=== PATIENT | female | born 1995 | race Caucasian/White ===

== ENCOUNTER 2021-10-27 13:51 | Emergency (ER) | payer OTHER, SELFPAY ==
[2021-10-27 13:59] VITALS: BP 113/62; PULSE 65; RESP 18; TEMP 37.1; O2SAT 96; BMI 24.8
--- NOTE | 2021-10-27 14:17 | ED.GENADULT ---
HPI - General Adult General Time Seen by Provider: 14:17 Date Seen: 10/27/21 Chief complaint: Abdominal Pain Stated complaint: R side Abdominal Pain Time Seen by Provider: 10/27/21 13:55 Source: patient and RN notes reviewed Mode of arrival: ambulatory Limitations: no limitations History of Present Illness HPI narrative: This 26-year-old female is coming in with right-sided abdominal pain. She is ambulatory into the ED of her own accord. For the last couple of days, she had noted some low back pain. This morning she started having right-sided abdominal pain, right upper flank area. Seem to go to the right belly button area and then more right-sided and right lower quadrant. Right now it is more in the right upper abdomen. If she lies still it seems to be better. She did eat breakfast this morning but noted nausea afterwards, no vomiting. She endorses some longer-term nausea with eating. That recently did worsen after starting Zoloft. She notes some difficulty with constipation at times but no diarrhea. No urinary symptoms. No noted fevers but she has felt increased sweaty and hot particularly this morning. She had a umbilical hernia repair reportedly with mesh after her delivery of her child. That was reported to be a normal spontaneous vaginal delivery. She has also had cardiac surgery for atrial septal defect at age 15 per report. As far as family history of abdominal issues, she believes her brother has had his gallbladder out. Related Data Home Medications Medication Instructions Recorded Confirmed norethindrone (contraceptive) 0.35 mg 10/27/21 mg tablet sertraline 50 mg tablet mg 10/27/21 Previous Rx's Medication Instructions Recorded omeprazole 20 mg capsule,delayed 20 mg PO DAILY #14 caps 10/27/21 release Allergies Allergy/AdvReac Type Severity Reaction Status Date / Time No Known Drug Allergies Allergy Verified 10/27/21 13:59 Review of Systems Status of ROS: Reports: 10 or more systems reviewed and unremarkable except as noted in History and below PFSH PFS Social History Smoking Status: Former smoker Do you use any of these nicotine containing products: None Second hand tobacco smoke exposure: No How often do you have a drink containing alcohol: monthly or less How many standard drinks containing alcohol do you have on a typical day: 1 or 2 How often do you have six or more drinks on one occasion: Never AUDIT-C Alcohol total score: 1 Non-prescribed substance use: marijuana (any form) service: No Exam Const: Vital Signs, click to edit/add: Vital Signs - 24 hr 10/27/21 13:59 Temperature 98.7 F Pulse Rate [Pulse Oximeter] 65 Respiratory Rate 18 Blood Pressure [Le ft Upper Arm] 113/62 Pulse Oximetry 96 Oxygen Delivery Me thod Room Air Documenting provider has reviewed patient's vital signs: yes Common normals: no apparent distress, average body habitus, oriented x3, no limitations, healthy appearing, alert and well nourished General appearance: cooperative, comfortable and well kempt HENMT: Common normals: normocephalic, head/scalp atraumatic, hearing grossly normal bilaterally, external ears normal, EAC's normal, external nose normal, nasal mucous membranes and turbinates normal, moist oral mucous membranes, oropharynx normal, dentition normal and gingiva normal Head and scalp: normocephalic and atraumatic Nose: external nose normal and nasal mucous membranes and turbinates normal External ear: external ears normal External auditory canal: EAC's normal Eye: Common normals: PERRL, EOMs intact bilaterally, conjunctivae normal and no scleral icterus Conjunctiva: conjunctiva(e) normal Pupil: PERRL Neck & C-Spine: Common normals: full ROM, no lymphadenopathy, supple, no meningeal signs, no JVD and thyroid normal Thyroid: thyroid normal Resp: Common normals: normal respiratory effort, no retractions, no use of accessory muscles and clear to auscultation bilaterally Auscultation: clear to auscultation bilaterally Cardio: Common normals: no JVD, regular rate, regular rhythm, S1 normal heart sound, S2 normal heart sound, no gallops, no clicks, no murmurs and no rub Rate: regular rate Rhythm: regular rhythm Heart sounds: S1 normal and S2 normal GI: Common normals: Normal to inspection, nondistended, normoactive bowel sounds present (Has flesh-colored striae), soft to palpation, no hepatosplenomegaly, no masses and no bruits Palpation: soft, tender (Right upper quadrant more laterally, right paraumbilical area), no hepatosplenomegaly and other (No rebound or guarding however) : Common normals: no CVA tenderness Bladder/kidney exam: no CVA tenderness Back & Pelvis: Common normals: no CVA tenderness Extremity: Common normals: normal to inspection, full ROM, normal capillary refill, no joint enlargement, no clubbing, cyanosis or edema, no calf tenderness and no pedal edema Neuro: Common normals: oriented x3 Sensorium/orientation: alert Meningeal signs: no meningeal signs Speech: speech normal Gait (neuro): normal gait Psych: Appearance: well kempt Skin: Common normals: no rashes or lesions noted, no wounds, skin turgor normal, no jaundice, no petechiae and no mottling General skin exam: no rashes or lesions noted and turgor normal Course Course Hospital Course: We will establish an IV, give her 4 mg IV Zofran and 15 mg IV Toradol for symptom control. We will proceed with a limited right upper quadrant abdominal ultrasound. Will get appropriate lab work and proceed with advanced imaging if need be. This certainly sounds to be intra-abdominal pathology and with the proceeding ongoing nausea, definitely think gallbladder issues are high in the differential. We will look at other acute abdominal pathology if need be with a CT. We will await labs, see what the abdominal ultrasound shows and guide therapy accordingly. Reevaluation(s) Reevaluation #1: Reviewed with patient that her ultrasound is not showing any acute pathology. It looks like there might be a possible gallbladder polyp which she should follow up outpatient with General surgery to review further. This does not require emergent intervention. Outside of a mildly elevated bilirubin labs are normal, white blood count normal. We still do need to collect urine in she states she will try. If she cannot give us a urinalysis will give her IV fluids. Her pain is still present but improved. Thus, I do feel we need to proceed with abdominal imaging to ensure no acute surgical abdomen. Will proceed with CT abdomen pelvis with IV contrast. Time: 16:48 Reevaluation #2: Reviewed with patient her normal CT. Discussed the importance of following up. She goes to [facility] and she can follow up with the general surgeon there. They can discuss the gallbladder polyp, her nausea, discuss further evaluation. Gastric etiologies are a possibility in an EGD may be recommended. We also discussed dysfunctional gallbladder is which may require a HIDA scan. In the meantime will initiate omeprazole to cover for GI issues. Her nausea certainly started before her antidepressant by her report. It certainly has been aggravated by the use of the antidepressant but this usually will marilee with people if they can give it some time. If needed, her primary care provider could consider switching medicines for her. Time: 18:53 Vital Signs Vital signs: Initial Vital Signs Temperature 98.7 F 10/27/21 13:59 Temperature Source Temporal Artery Scan 10/27/21 13:59 Pulse Rate 65 10/27/21 13:59 Pulse Rhythm 10/27/21 13:59 Respiratory Rate 18 10/27/21 13:59 Blood Pressure 113/62 10/27/21 13:59 Blood Pressure Mean 79 10/27/21 13:59 Pulse Oximetry 96 10/27/21 13:59 Oxygen Delivery Method 10/27/21 13:59 Vital Signs Temperature 98.7 F 10/27/21 13:59 Pulse Rate 65 10/27/21 13:59 Respiratory Rate 18 10/27/21 13:59 Blood Pressure 113/62 10/27/21 13:59 Pulse Oximetry 96 10/27/21 13:59 Oxygen Delivery Method 10/27/21 13:59 Temperature 98.7 F 10/27/21 13:59 Pulse Rate 65 10/27/21 13:59 Respiratory Rate 18 10/27/21 13:59 Blood Pressure 113/62 10/27/21 13:59 Pulse Oximetry 96 10/27/21 13:59 Oxygen Delivery Method 10/27/21 13:59 Medical Decision Making Lab Data Lab results reviewed: Yes I reviewed the patient's lab results Labs: Lab Results 10/27/21 10/27/21 10/27/21 Range/Units 14:55 14:55 14:55 WBC 9.34 (4.50-11.00) K/uL RBC 4.27 (4.00-5.20) m/uL Hgb 13.2 (12.0-16.0) gm/dL Hct 38.6 (33.0-51.0) % MCV 90 (80-100) fL MCH 31 (26-34) pg MCHC 34 (32-36) gm/dL RDW Coeff of Sara 11.0 L (11.5-15.5) % Plt Count 208 (140-440) K/uL Neut % (Auto) 77.6 H (42.0-72.0) % Lymph % (Auto) 14.6 L (20-44) % [place] % (Auto) 6.6 (0.0-11.0) % Eos % (Auto) 0.5 (0.0-7.0) % Baso % (Auto) 0.3 (0.0-3.0) % Neut # (Auto) 7.20 H (1.7-7.0) K/uL Lymph # (Auto) 1.40 (0.90-2.90) K/uL [place] # (Auto) 0.60 (0.00-0.90) K/UL Eos # (Auto) 0.05 (0.00-0.50) K/uL Baso # (Auto) 0.03 (0.00-0.30) K/uL Abs Immat Gran (auto) 0.04 (0.00-0.30) K/uL Sodium 141 (135-149) mmol/L Potassium 3.8 (3.6-5.1) mmol/L Chloride 106 (96-114) mmol/L Carbon Dioxide 25 (20-32) mmol/L BUN 13 (5-24) mg/dL Creatinine 0.7 (0.5-1.5) mg/dL Estimated Creat Clear 111.51 Estimated GFR 124 ml/min Glucose 98 (60-115) mg/dL Lactate 0.9 (0.5-1.9) mmol/L Calcium 9.5 (8.4-10.6) mg/dL Total Bilirubin 3.1 H (0.1-1.5) mg/dL AST 20 (12-35) U/L ALT 16 (4-35) U/L Alkaline Phosphatase 41 (40-150) U/L C-Reactive Protein < 0.5 L (0.5-1.0) mg/dL Total Protein 8.0 (6.0-8.3) g/dL Albumin 5.0 (3.3-5.0) g/dL Lipase 59 (23-300) U/L Urine Color (Yellow) Urine Appearance (Clear) Urine pH (5.0-8.5) Ur Specific [place] (1.000-1.030) Urine Protein (Negative) Urine Glucose (UA) (Negative) Urine Ketones (Negative) Urine Blood (Negative) Urine Nitrite (Negative) Urine Bilirubin (Negative) Urine Urobilinogen (0.2-1.0) Ur Leukocyte Esterase (Negative) Urine RBC (0-2) Urine WBC (0-5) Ur Squamous Epith Cells (None-Few) Amorphous Sediment (None) Urine Bacteria (None) Urine HCG, Qual (Negative) SARS-CoV-2 (PCR) (Negative) 10/27/21 10/27/21 10/27/21 Range/Units 14:55 16:50 16:50 WBC (4.50-11.00) K/uL RBC (4.00-5.20) m/uL Hgb (12.0-16.0) gm/dL Hct (33.0-51.0) % MCV (80-100) fL MCH (26-34) pg MCHC (32-36) gm/dL RDW Coeff of Sara (11.5-15.5) % Plt Count (140-440) K/uL Neut % (Auto) (42.0-72.0) % Lymph % (Auto) (20-44) % [place] % (Auto) (0.0-11.0) % Eos % (Auto) (0.0-7.0) % Baso % (Auto) (0.0-3.0) % Neut # (Auto) (1.7-7.0) K/uL Lymph # (Auto) (0.90-2.90) K/uL [place] # (Auto) (0.00-0.90) K/UL Eos # (Auto) (0.00-0.50) K/uL Baso # (Auto) (0.00-0.30) K/uL Abs Immat Gran (auto) (0.00-0.30) K/uL Sodium (135-149) mmol/L Potassium (3.6-5.1) mmol/L Chloride (96-114) mmol/L Carbon Dioxide (20-32) mmol/L BUN (5-24) mg/dL Creatinine (0.5-1.5) mg/dL Estimated Creat Clear Estimated GFR ml/min Glucose (60-115) mg/dL Lactate (0.5-1.9) mmol/L Calcium (8.4-10.6) mg/dL Total Bilirubin (0.1-1.5) mg/dL AST (12-35) U/L ALT (4-35) U/L Alkaline Phosphatase (40-150) U/L C-Reactive Protein (0.5-1.0) mg/dL Total Protein (6.0-8.3) g/dL Albumin (3.3-5.0) g/dL Lipase (23-300) U/L Urine Color Yellow (Yellow) Urine Appearance Cloudy A (Clear) Urine pH 8.0 (5.0-8.5) Ur Specific [place] 1.020 (1.000-1.030) Urine Protein Trace A (Negative) Urine Glucose (UA) Negative (Negative) Urine Ketones Trace A (Negative) Urine Blood Negative (Negative) Urine Nitrite Negative (Negative) Urine Bilirubin Negative (Negative) Urine Urobilinogen 2.0 A (0.2-1.0) Ur Leukocyte Esterase Trace A (Negative) Urine RBC 0-2 (0-2) Urine WBC 5-10 A (0-5) Ur Squamous Epith Cells Moderate A (None-Few) Amorphous Sediment Many A (None) Urine Bacteria Moderate A (None) Urine HCG, Qual Negative (Negative) SARS-CoV-2 (PCR) Negative SARS-CoV-2 (Negative) Urine appears to show contamination. Imaging Data US - abdomen: Attestation: I have reviewed the pertinent imaging results. Radiologist's impression: Patient: DIONICIO [facility] Facility:?[facility] Patient ID:?[id number] Site Patient ID:?[id number]. Site :?[id number] Study:?US Abdomen RUQ-10/27/2021 3:39:58 PM Ordering Physician:?Yonatan Villa Final Report: INDICATION: Right upper quadrant pain. Nausea. TECHNIQUE: Transabdominal imaging with attention to the right upper quadrant. COMPARISON: None. FINDINGS: Pancreas is predominantly obscured. Visualized proximal abdominal aorta and IVC are unremarkable. Visualized liver is unremarkable. Hepatopetal flow is demonstrated in the main portal vein. No sludge or stones are seen within the gallbladder. Incidental 3 mm gallbladder polyp. Bile ducts are normal in caliber. The CBD measures 4 mm. Right kidney is normal size with no hydronephrosis. IMPRESSION: 1. No sonographic evidence of cholelithiasis or cholecystitis. 2. Incidental 3 mm gallbladder polyp. 3. No other significant findings. Dictated by Herbie Griffith MD @ 10/27/2021 4:31:52 PM (Electronic Signature) CT scan - abdomen: Attestation: I have reviewed the pertinent imaging results. Radiologist's impression: Patient: DIONICIO VALENZUELA Facility:?[facility] Patient ID:?[id number] Site Patient ID:?[id number]. Site :?[id number] Study:?CT Abdomen/Pelvis W/ISOVUE 370 74CC-10/27/2021 5:40:54 PM Ordering Physician:?Yonatan Villa Final Report: INDICATION: Right-sided pain. TECHNIQUE: CT abdomen and pelvis acquired with 74 mL Isovue 370 IV contrast. COMPARISON: None. FINDINGS: Lower chest: Normal heart size. No pericardial effusion. A few benign subpleural pulmonary nodules are seen in the lung bases. No pleural fluid. Liver: Normal size. No mass. Spleen: Normal size. No mass. Pancreas: No mass or acute inflammatory changes. Gallbladder and bile ducts: No calcified stones in the gallbladder. Normal caliber bile ducts. Kidneys: Normal size. Normal enhancement. No mass. No hydronephrosis. Adrenal glands: No mass. No hemorrhage. GI tract: No abnormally dilated bowel. Appendix is not definitely identified. No inflammatory changes are seen adjacent to the cecum. Vascular structures: Normal caliber abdominal aorta. Lymph nodes: No pathologically enlarged lymph nodes. Miscellaneous: No free air. No free fluid. Pelvic Organs: Collapsed urinary bladder appears unremarkable. Uterus is present. No suspicious adnexal mass. Bones: No acute abnormality. IMPRESSION: No CT findings to account for the patient`s right-sided abdominal pain. Please note that all CT scans at this facility use dose modulation, iterative reconstruction, and/or weight-based dosing when appropriate to reduce radiation dose to as low as reasonably achievable. Dictated by Herbie Griffith MD @ 10/27/2021 6:22:20 PM (Electronic Signature) Critical Care Time Critical Care Time Critical Care Time: No Discharge Plan Discharge Clinical Impression: Right-sided abdominal pain of unknown cause, Gallbladder polyp, Nausea Condition: Stable Instructions: Acute Nausea and Vomiting (ED), Abdominal Pain (ED) Additional Instructions: Need to call [facility] this next week to ask to be scheduled with 1 of the general surgeons for further evaluation and management. In the meantime, start omeprazole. If you develop worsening of your abdominal pain have associated vomiting or fever with it, do need to seek re-evaluation in the ER. Activity Level: Activity as Tolerated Prescriptions: New omeprazole 20 mg capsule,delayed release(DR/EC) 20 mg PO DAILY Qty: 14 0RF No Action norethindrone (contraceptive) 0.35 mg tablet Label Comments: TAKE 1 TABLET BY MOUTH ONCE DAILY. sertraline 50 mg tablet Label Comments: TAKE 1 TABLET BY MOUTH EVERY DAY Stand Alone Forms: [employer] Info Instructions
--- NOTE | 2021-10-27 14:45 | CRLHL7_ITS ---
For Patients: As a result of the Century Cures Act, medical imaging exams and procedure reports are released immediately into your electronic medical record. You may view this report before your referring provider. If you have questions, please contact your health care provider. INDICATION: Right upper quadrant pain. Nausea. TECHNIQUE: Transabdominal imaging with attention to the right upper quadrant. COMPARISON: None. FINDINGS: Pancreas is predominantly obscured. Visualized proximal abdominal aorta and IVC are unremarkable. Visualized liver is unremarkable. Hepatopetal flow is demonstrated in the main portal vein. No sludge or stones are seen within the gallbladder. Incidental 3 mm gallbladder polyp. Bile ducts are normal in caliber. The CBD measures 4 mm. Right kidney is normal size with no hydronephrosis. IMPRESSION: 1. No sonographic evidence of cholelithiasis or cholecystitis. 2. Incidental 3 mm gallbladder polyp. 3. No other significant findings. Dictated by Herbie Griffith MD @ 10/27/2021 4:31:52 PM (Electronically Signed)
[2021-10-27] MEDS: KETOROLAC 15 MG/ML inj IVP (15:09)
[2021-10-27 15:17] LABS: Lactate* 0.9 mmol/L (0.5-1.9)
[2021-10-27 15:27] LABS: Basophils Absolute Auto 0.03 K/uL (0.00-0.30); Basophils Percent Auto 0.3 % (0.0-3.0); Eosinophils Absolute Auto 0.05 K/uL (0.00-0.50); Eosinophils Percent Auto 0.5 % (0.0-7.0); Hematocrit 38.6 % (33.0-51.0); Hemoglobin* 13.2 gm/dL (12.0-16.0); Immature Granulocytes Abs Auto 0.04 K/uL (0.00-0.30); Lymphocytes Percent Auto 14.6 % (20-44); Mean Corpuscular HGB Conc 34 gm/dL (32-36); Mean Corpuscular Hemoglobin 31 pg (26-34); Mean Corpuscular Volume 90 fL (80-100); Monocytes Percent Auto 6.6 % (0.0-11.0); Neutrophils Percent Auto 77.6 % (42.0-72.0); Platelet Count* 208 K/uL (140-440); Red Blood Count 4.27 m/uL (4.00-5.20); White Blood Count* 9.34 K/uL (4.50-11.00)
[2021-10-27 15:30] LABS: Slide Review Reflex No
[2021-10-27 15:33] LABS: Chloride* 106 mmol/L (96-114)
[2021-10-27 15:34] LABS: Potassium* 3.8 mmol/L (3.6-5.1); Sodium* 141 mmol/L (135-149)
[2021-10-27 15:36] LABS: Creatinine* 0.7 mg/dL (0.5-1.5); Est. Creatinine Clearance* 111.51; Estimated Glomerular Filt Rate 124 ml/min
[2021-10-27 15:37] LABS: Alanine Aminotransferase* 16 U/L (4-35); Alkaline Phosphatase* 41 U/L (40-150); Aspartate Amino Transferase* 20 U/L (12-35); Bilirubin Total* 3.1 mg/dL (0.1-1.5); Blood Urea Nitrogen* 13 mg/dL (5-24); Calcium* 9.5 mg/dL (8.4-10.6); Carbon Dioxide* 25 mmol/L (20-32); Glucose* 98 mg/dL (60-115); Lipase* 59 U/L (23-300)
[2021-10-27 15:42] LABS: C Reactive Protein* < 0.5 mg/dL (0.5-1.0)
[2021-10-27 16:02] LABS: SARS PCR* Negative SARS-CoV-2 (Negative)
--- NOTE | 2021-10-27 16:49 | CRLHL7_ITS ---
For Patients: As a result of the Century Cures Act, medical imaging exams and procedure reports are released immediately into your electronic medical record. You may view this report before your referring provider. If you have questions, please contact your health care provider. INDICATION: Right-sided pain. TECHNIQUE: CT abdomen and pelvis acquired with 74 mL Isovue 370 IV contrast. COMPARISON: None. FINDINGS: Lower chest: Normal heart size. No pericardial effusion. A few benign subpleural pulmonary nodules are seen in the lung bases. No pleural fluid. Liver: Normal size. No mass. Spleen: Normal size. No mass. Pancreas: No mass or acute inflammatory changes. Gallbladder and bile ducts: No calcified stones in the gallbladder. Normal caliber bile ducts. Kidneys: Normal size. Normal enhancement. No mass. No hydronephrosis. Adrenal glands: No mass. No hemorrhage. GI tract: No abnormally dilated bowel. Appendix is not definitely identified. No inflammatory changes are seen adjacent to the cecum. Vascular structures: Normal caliber abdominal aorta. Lymph nodes: No pathologically enlarged lymph nodes. Miscellaneous: No free air. No free fluid. Pelvic Organs: Collapsed urinary bladder appears unremarkable. Uterus is present. No suspicious adnexal mass. Bones: No acute abnormality. IMPRESSION: No CT findings to account for the patient`s right-sided abdominal pain. Please note that all CT scans at this facility use dose modulation, iterative reconstruction, and/or weight-based dosing when appropriate to reduce radiation dose to as low as reasonably achievable. Dictated by Herbie Griffith MD @ 10/27/2021 6:22:20 PM (Electronically Signed)
[2021-10-27 17:04] LABS: Appearance Urine Cloudy (Clear); Bilirubin Urine Negative (Negative); Blood Urine Negative (Negative); Color Urine Yellow (Yellow); Glucose Urine Negative (Negative); Ketones Urine Trace (Negative); Leukocyte Esterase Urine Trace (Negative); Nitrite Urine Negative (Negative); Protein Urine Trace (Negative)
[2021-10-27 17:05] LABS: Ur HCG Qualitative* Negative (Negative)
[2021-10-27 17:15] LABS: Amorphous Sediment Urine Many; Bacteria Urine Moderate; RBC Urine 0-2 (0-2); Squamous Epithelial Cell Urine Moderate (None-Few)
== END 2021-10-27 19:09 | disposition home or self-care (01) ==
PROVIDERS: Emergency Provider Family Medicine
DX: K80.20 Calculus of gallbladder without cholecystitis without obstruction (principal)
CPT/HCPCS: 36415; 74177; 76705; 80053; 81001; 81025; 83605; 83690; 85025; 86140; 87086; 87635; 96374; 99284; 99285; J1885; Q9967

== ENCOUNTER 2022-03-09 21:36 | Emergency (ER) | payer OTHER, SELFPAY ==
[2022-03-09 21:42] VITALS: BP 124/79; PULSE 63; RESP 16; TEMP 36.1; O2SAT 100
--- NOTE | 2022-03-09 22:36 | ED.ABDPAIN ---
HPI - Abdominal Pain General Chief Complaint: Abdominal Pain Stated Complaint: right side abdominal pain Time Seen by Provider: 03/09/22 21:57 History of Present Illness HPI narrative: 26-year-old woman presenting to the emergency department where tonight for about an hour and a half onset while at work of sharp intense pain wrapping around to her flank. Similar to prior presentation here before with elevated bilirubin and suspicion of gallbladder disease. Does have a history of nephrolithiasis and this is not exacty like kidney stones/ureteral colic that she has experienced. Also crampy across the low abdomen. Had been constipated for a few days until bowel movement a couple of days ago. Often has had periods of constipation. History of nephrolithiasis, constipation, irritable bowel with intolerance it sounds like of pasta and bread making her not feel good i.e. gluten, lactose avoiding milk. Last seen in this department with right upper quadrant abdominal pain in October of 2021. She was recommended to have consultation with General surgery but has not managed to make this follow-up. Related Data Home Medications Medication Instructions Recorded Confirmed norethindrone (contraceptive) 0.35 mg 10/27/21 mg tablet sertraline 50 mg tablet mg 10/27/21 Previous Rx's Medication Instructions Recorded omeprazole 20 mg capsule,delayed 20 mg PO DAILY #14 caps 10/27/21 release Allergies Allergy/AdvReac Type Severity Reaction Status Date / Time No Known Drug Allergies Allergy Verified 10/27/21 13:59 Review of Systems Status of ROS Reports: 10 or more systems reviewed and unremarkable except as noted in History and below [facility] Social History Smoking Status: Former smoker Do you use any of these nicotine containing products: Vaping Products Second hand tobacco smoke exposure: No How often do you have a drink containing alcohol: monthly or less How many standard drinks containing alcohol do you have on a typical day: 1 or 2 How often do you have six or more drinks on one occasion: Never AUDIT-C Alcohol total score: 1 Non-prescribed substance use: marijuana (any form) service: No Exam Narrative: Exam Narrative: Pleasant. NAD. Cranial nerves 2-12 look to be in tact. Hand often palpating, demonstrating area of discomfort in the right upper quadrant. Breathing easily. Lungs are clear. Oropharynx unremarkable. Heart in a regular rate and rhythm no murmur rub or gallop identified. Abdomen with normal active bowel sounds. abdomen generally mildly tender to palpation without peritoneal signs. soft. No masses appreciated. No flank pain. Moving all extremities without difficulty. Well perfused. No extremity edema. Const: Vital Signs, click to edit/add: Vital Signs - 24 hr 03/09/22 21:42 03/09/22 22:51 Temperature 97.0 F L Pulse Rate [Left P ulse Oximeter] 63 Respiratory Rate 16 16 Blood Pressure [Ri ght Upper Arm] 124/79 Pulse Oximetry 100 Oxygen Delivery Me thod Room Air Documenting provider has reviewed patient's vital signs: yes Course Vital Signs Vital signs: Initial Vital Signs Temperature 97.0 F L 03/09/22 21:42 Temperature Source Temporal Artery Scan 03/09/22 21:42 Pulse Rate 63 03/09/22 21:42 Pulse Rhythm 03/09/22 21:42 Respiratory Rate 16 03/09/22 21:42 Blood Pressure 124/79 03/09/22 21:42 Blood Pressure Mean 94 03/09/22 21:42 Blood Pressure Position Sitting 03/09/22 21:42 Pulse Oximetry 100 03/09/22 21:42 Oxygen Delivery Method 03/09/22 21:42 Vital Signs Temperature 97.0 F L 03/09/22 21:42 Pulse Rate 63 03/09/22 21:42 Respiratory Rate 16 03/09/22 21:42 Blood Pressure 124/79 03/09/22 21:42 Pulse Oximetry 100 03/09/22 21:42 Oxygen Delivery Method 03/09/22 21:42 Temperature 97.0 F L 03/09/22 21:42 Pulse Rate 63 03/09/22 21:42 Respiratory Rate 16 03/09/22 22:51 Blood Pressure 124/79 03/09/22 21:42 Pulse Oximetry 100 03/09/22 21:42 Oxygen Delivery Method 03/09/22 21:42 MDM - Abdominal Pain MDM Narrative Medical decision making narrative: The more severe/acute symptoms seem to have been self-limiting on top of more chronic issue here. We did discuss evaluating again here though not convinced that this would change outcome. Overall improved. I did offer further cares here but also encouraged toward outpatient follow-up. She does feel comfortable with this, preferring the latter. Medical Records Attestation: I reviewed the patient's medical records. Discharge Plan Discharge Clinical Impression: Abdominal pain, Constipation, Irritable bowel, Right upper quadrant abdominal pain Patient Disposition: Home w/ Parent or Adult Condition: Improved Additional Instructions: Yes. Might be a good idea to call for an appointment with General surgery for re-evaluation your gallbladder. Your bilirubin was up during your last visit. In the meantime might benefit from restarting 2 weeks of omeprazole and/or initiating some digestive enzymes like Crissy Bio-Gest. Important to stay well hydrated. Need to drink around 2-3 L of water daily. Keep your stool soft with good fiber intake in the form of fruits and vegetables. Might begin supplementing with MiraLax equivalent somewhere between 1-3 doses each in at least 8 oz of liquid, by noon and then adjust to stool consistency. If having really hard stool do not be afraid to use an enema and repeat in an hour if no good result. No need to strain. Stimulating your bowel can also be accomplished by a tablet or 2 of senna daily as needed. Not something you want to take every day chronically. Bowel cleanout can be accomplished with a bottle of magnesium citrate, if available, and repeat the next day if needed. Return for marked increase in persistent abdominal pain, repeated vomiting, associated fever. Prescriptions: No Action norethindrone (contraceptive) 0.35 mg tablet Label Comments: TAKE 1 TABLET BY MOUTH ONCE DAILY. sertraline 50 mg tablet Label Comments: TAKE 1 TABLET BY MOUTH EVERY DAY omeprazole 20 mg capsule,delayed release(DR/EC) 20 mg PO DAILY Qty: 14 0RF Follow Up/Referrals: Provider,Not a Local [Primary Care Provider] - Stand Alone Forms: [employer] Info Instructions
[2022-03-09 22:51] VITALS: RESP 16
== END 2022-03-09 22:51 | disposition home or self-care (01) ==
PROVIDERS: Emergency Provider Family Medicine
DX: R10.11 Right upper quadrant pain (principal); K58.1 Irritable bowel syndrome with constipation
CPT/HCPCS: 99282; 99283

== ENCOUNTER 2024-10-06 19:31 | Emergency (ER) | payer OTHER, SELFPAY ==
--- OUTSIDE RECORDS SUMMARY | 2024-10-06 19:33 | XMS_ITS | Clinical Summary ---
Author Organization [email or web address] [facility] Address [address] [place] [id number] Care Team Providers Care Marketing Systems Manager Name Role Phone Pcp, No Primary Care Provider Unavailabl e Allergies No known active allergies Medications No known medications Active Problems Problem Noted Date Diagnosed Date Pap smear for cervical cancer screening 05/09/19 22 Overview (06/14/2021): Plan: Pap/HPV due 04/2024 Social History Tobacco Use Types Packs/Day Years Used Date Smoking Tobacco: Every Day Cigarettes Smokeless Tobacco: Never Tobacco Cessation:Ready to Q uit: Not Asked; Counseling Given: Not Answered Alcohol Use Standard Drinks/Week Comments Not Currently 0 (1 standard drink = 0.6 oz pur e alcohol) about 1-2 drinks per week PHQ-2 Answer Date Recorded PHQ-2 TOTAL SCORE 6 10/23/2021 Social Connections Answer Date Recorded Do you often feel lonely or isolated from those around you? 0 07/24/2023 Financial Resource Strain Answer Date R ecorded Difficulty of Paying Living Expenses 3 07/24/2023 Difficulty of Paying Living Expenses Not on file 07/24/2023 Food Insecurity Answer Date Recorded Do you worry your food will run out before you are able to buy more? 1 07/24/2023 Transportation Needs Answer Date Record ed Does lack of transportation keep you from medica l appointments? 1 07/24/2023 Does lack of transportation keep you from work, meetings or getting things that you need? 1 07/24/2023 Housing Stability Answer Date Recorded What is your housing situation today? 1 07/24/2023 Utilities Answer Date Recorded Do you have trouble paying f or utilities (for example, heat, electricity, water, phone)? 1 07/24/2023 Comments No Sex and Gender Information Value Date Recorded Sex Assigned at Not on file Legal Sex Female 12:51 PM CDT Gender Identity Not on file Sexual Orientation Not on file Obstetrics History Last Filed Vital Signs Vital Sign Reading Time Taken Comments Blood Pressure 135/81 02/13/2024 11:27 AM DECAL APPLIER Pulse 75 02/13/2024 11:27 AM DECAL APPLIER Temperature 37 C (98.6 F) 03/24/2023 9:13 AM DECAL APPLIER Respiratory Rate 16 08/12/2021 4:01 PM CDT Oxygen Saturation 100% 02/13/2024 11:27 AM DECAL APPLIER Inhaled Oxygen Concentration - - Weight 81.9 kg (180 lb 9.6 oz) 02/13/2024 11:27 AM DECAL APPLIER Height 166 cm (5' 5.35) 05/08/2021 10:46 AM CDT Body Mass Index 29.73 05/08/2021 10:46 AM CDT Plan of Treatment Health Maintenance Due Date Last Done Comments Tetanus booster 2008 HIV for age 15-65 2012 Hepatitis C screening for age 18-79 05/07/2015 Hepatitis B series for 19+ ( 1 of 3 - 19+ 3-dose series) 2016 Pneumococcal series for age 6-49 (1 of 2 - PCV) 2016 BMI (ht and wt on same day) for age 18+ 05/08/2022 0 05/08/2021 Depression screening for age 12+ 10/23/2022 10/24/19 22 COVID-19 vaccine series ( - season) Pap test for age 21-65 05/08/2024 05/08/2021 Influenza Vaccine (#1) 2024 Procedures Procedure Name Priority Date/Time Associated Diagnosis Comments AERIAL CROP DUSTER THIN PREP PAP SCREEN IMAGED Routine 05/08/2021 11:11 AM CDT Screening for malignant neoplasm of cervix from Last 3 Months or Most Recently Relevant to Health Maintenance Results * AERIAL CROP DUSTER THIN PREP PAP SCREEN IMAGED (05/08/2021 11:11 AM CDT) Case Report Gynecologic Cytology Report Case: [id number] Authorizing Provider: Jesi Gibson PA Collected: 05/08/2021 1111 Ordering Location: [facility] Received: 05/08/2021 1130 Clinic First Screen: Tatiana Magana Specimen: AERIAL CROP DUSTER ThinPrep Vial Screening, Cervical 05/16/2021 2:32 PM CDT [facility] [employer] [facility] INTERPRETATION/ RESULT NEGATIVE FOR INTRAEPITHELIAL LESION OR MALIGNANCY (NIL) (none) 05/16/2021 2:32 PM CDT [facility] at 1432 CDT SPECIMEN ADEQUACY Satisfactory for evaluation Endocervical component present 05/16/2021 2:32 PM CDT [facility] HPV REQUEST HPV if ASCUS 05/16/2021 2:32 PM CDT [facility] Date of LMP 04/15/2021 05/16/2021 2:32 PM CDT [facility] Last Pap Date 4 years ago? 2 2:32 PM CDT [facility] Last Pap Result NIL 2 2:32 PM CDT [facility] Abnormal Pap or [place] Bx in last 5 years No 05/16/2021 2:32 PM CDT [facility] Menstrual Status Regular Periods 05/16/2021 2:32 PM CDT [facility] [place] Bx Done Today No 05/16/2021 2:32 PM CDT [facility] Additional Information None given 05/16/2021 2:32 PM CDT [facility] Comment: Cytology is screened at [facility], [facility] - [address], [place] [address] and [facility] - [address], [place] [address] and [facility] - [address] [place] [address] Interpreted at [facility] - [address] [place] [address] Automated Review Successful 05/16/2021 2:32 PM CDT [facility] Comment:Specimen processed s uccessfully by automated personal health coach device, [employer] Imaging System, [employer] Note The pap test is a screening technique, not a diagnostic procedure. It is used primarily to screen for squamous cancers and precursor lesions. Published studies have shown that it is subject to both false negative and false positive results. The pap test should not be used as the sole means to diagnose or exclude pre-malignant and malignant lesions. 05/16/2021 2:32 PM CDT [facility] Other (Cervical) Non-Blood / Unknown 05/08/2021 11:11 AM CDT 05/08/2021 11:30 AM CDT us Jesi BANKS PATHOLOGY/CYTOLOGY Final R esult [facility] [address] [place] [address], from Last 3 Months or Most Recently Relevant to Health Maintenance Insurance [address] [id number] [facility] Care Teams Marketing Systems Manager Relationship Specialty Start Date End Date Pcp, No . PCP - General 08/03/22
[2024-10-06 19:40] VITALS: BP 117/77; PULSE 84; RESP 18; TEMP 36.7; O2SAT 100; BMI 22.8
--- NOTE | 2024-10-06 19:54 | ED.ABDPAIN ---
HPI - Abdominal Pain General Date Seen: 10/06/24 <Nichole Johnson MD - Last Filed: 10/09/24 17:12> Chief Complaint: Abdominal Pain <Nichole Johnson MD - Last Filed: 10/09/24 17:12> Stated Complaint: pelvis/leg pain <Nichole Johnson MD - Last Filed: 10/09/24 17:12> Time Seen by Provider: 10/06/24 19:54 <Nichole Johnson MD - Last Filed: 10/09/24 17:12> Source: patient, family and RN notes reviewed <Nichole Johnson MD - Last Filed: 10/09/24 17:12> Mode of arrival: ambulatory <Nichole Johnson MD - Last Filed: 10/09/24 17:12> Limitations: no limitations <Nichole Johnson MD - Last Filed: 10/09/24 17:12> History of Present Illness HPI narrative: Noris is a very pleasant 29-year-old female with a history of ovarian cysts, weight loss who comes to the emergency room for evaluation regarding pelvic and leg pain. Patient notes that 2 nights ago she had discomfort in her lower abdomen radiating into both of her legs. She took some ibuprofen and greatly improved. Unfortunately the pain continued and this morning she took some Excedrin which did seem to help the pain but really is not much better. She notes that she had her period 10 days ago and that it was maybe a little longer than normal. She is sexually active with her significant other who has a vasectomy. She denies any unusual vaginal discharge. She has not had a fever but may be sometimes feel somewhat chilled. No nausea or vomiting. The pain in the lower abdomen actually radiates more into the left anterior leg. She states that her left leg is actually sore. She has not had any falls or trauma. She has not had any nausea or vomiting. No urinary symptoms at this time. She notes some difficulty with constipation or difficulty with defecating over the past few days. But notes that she had multiple bowel movements today. <Nichole Johnson MD - Last Filed: 10/09/24 17:12> Related Data Home Medications: Home Medications ?Medication ?Instructions ?Recorded ?Confirmed norethindrone (contraceptive) 0.35 mg 10/27/21 mg tablet sertraline 50 mg tablet mg 10/27/21 Previous Rx's ?Medication ?Instructions ?Recorded omeprazole 20 mg capsule,delayed 20 mg PO DAILY #14 caps 10/27/21 release <Nichole Johnson MD - Last Filed: 10/09/24 17:12> Allergies/Adverse Reactions: Allergies Allergy/AdvReac Type Severity Reaction Status Date / Time No Known Drug Allergies Allergy Verified 10/27/21 13:59 <Nichole Johnson MD - Last Filed: 10/09/24 17:12> Review of Systems Status of ROS Reports: 10 or more systems reviewed and unremarkable except as noted in History and below <Nichole Johnson MD - Last Filed: 10/09/24 17:12> Const Reports: chills; Denies: fever <Nichole Johnson MD - Last Filed: 10/09/24 17:12> ENMT Denies: nasal congestion <Nichole Johnson MD - Last Filed: 10/09/24 17:12> Cardio Denies: chest pain or shortness of breath with exertion <Nichole Johnson MD - Last Filed: 10/09/24 17:12> Resp Denies: shortness of breath or cough <Nichole Johnson MD - Last Filed: 10/09/24 17:12> GI Reports: abdominal pain and constipation; Denies: nausea or vomiting <Nichole Johnson MD - Last Filed: 10/09/24 17:12> Denies: painful urination or urinary frequency <Nichole Johnson MD - Last Filed: 10/09/24 17:12> Musculo Reports: back pain <Nichole Johnson MD - Last Filed: 10/09/24 17:12> Neuro Denies: headache <Nichole Johnson MD - Last Filed: 10/09/24 17:12> [facility] Social History: Social History Smoking Status: Former smoker Do you use any of these nicotine containing products: Vaping Products Second hand tobacco smoke exposure: No How often do you have a drink containing alcohol: monthly or less How many standard drinks containing alcohol do you have on a typical day: 1 or 2 How often do you have six or more drinks on one occasion: Never AUDIT-C Alcohol total score: 1 Non-prescribed substance use: marijuana (any form) service: No <Nichole Johnson MD - Last Filed: 10/09/24 17:12> Exam Narrative: Exam Narrative: Alert and oriented. No acute distress. Heart with regular rate and rhythm and lungs are clear. Head is atraumatic normocephalic. Mentation and speech is normal. Moist mucous membranes. Abdomen is soft. Rather diffuse tenderness noted in the entire lower aspect of the abdomen. No masses are palpated. Movement of the left leg internal external rotation flexion hip flexion without pain. No pain in the abdomen with tapping on the left heel. <Nichole Johnson MD - Last Filed: 10/09/24 17:12> Const: Vital Signs, click to edit/add: Vital Signs - 24 hr 10/06/24 19:40 10/06/24 22:04 Temperature 98.1 F Pulse Rate [Pulse Oximeter] 84 Respiratory Rate 18 Blood Pressure [Ri ght Upper Arm] 117/77 121/68 Pulse Oximetry 100 Oxygen Delivery Me thod Room Air <Nichole Johnson MD - Last Filed: 10/09/24 17:12> Vital Signs, click to edit/add: Vital Signs - 24 hr 10/06/24 19:40 10/06/24 22:04 Temperature 98.1 F Pulse Rate [Pulse Oximeter] 84 Respiratory Rate 18 Blood Pressure [Ri ght Upper Arm] 117/77 121/68 Pulse Oximetry 100 Oxygen Delivery Me thod Room Air <Daisy Tam MD - Last Filed: 10/06/24 23:19> Documenting provider has reviewed patient's vital signs: yes <Nichole Johnsno MD - Last Filed: 10/09/24 17:12> Course Course ED Course: Differential diagnosis includes but is not limited to GI illness, ovarian cyst, PID, urinary tract infection, radiculitis, musculoskeletal strain. Will place an IV draw labs include CBC, CRP, comprehensive, urinalysis, JIMENEZ wet prep, GC chlamydia. Have ordered ketorolac 15 mg IV. Also pending is a pelvic ultrasound. <Nichole Johnson MD - Last Filed: 10/09/24 17:12> Reevaluation(s) Reevaluation #1: At this time patient has a normal vaginal ultrasound. Pelvic exam accomplished. Does show an increased amount of vaginal discharge in the vault. There is no foul odor. It is slightly yellow. There is no irritation of the vaginal hunt. Cervix is posterior. No cervical motion tenderness. Patient did did have increased pain with palpation in the left adnexa. GC chlamydia and wet prep accomplished. Patient notes that Toradol has definitely helped. She talks about left leg at this time which is better but still present. She does note the pain seems to come from around her back. No known injuries. Vital signs and laboratory values are reassuring at this time. Given past history of constipation will order abdominal flat plate and upright. <Nichole Johnson MD - Last Filed: 10/09/24 17:12> Time of Reevaluation #2: 23:19 <Daisy Tam MD - Last Filed: 10/06/24 23:19> Reevaluation #2: X-ray read by Radiology reviewed, no change in plan. Patient will be discharged at this time. There are no new nursing concerns. <Daisy Tam MD - Last Filed: 10/06/24 23:19> Vital Signs Vital signs: Initial Vital Signs Temperature 98.1 F 10/06/24 19:40 Temperature Source Temporal Artery Scan 10/06/24 19:40 Pulse Rate 84 10/06/24 19:40 Pulse Rhythm Regular 10/06/24 19:40 Respiratory Rate 18 10/06/24 19:40 Blood Pressure 117/77 10/06/24 19:40 Blood Pressure Mean 90 10/06/24 19:40 Blood Pressure Position Sitting 10/06/24 19:40 Pulse Oximetry 100 10/06/24 19:40 Oxygen Delivery Method Room Air 10/06/24 19:40 Vital Signs Temperature 98.1 F 10/06/24 19:40 Pulse Rate 84 10/06/24 19:40 Respiratory Rate 18 10/06/24 19:40 Blood Pressure 117/77 10/06/24 19:40 Pulse Oximetry 100 10/06/24 19:40 Oxygen Delivery Method Room Air 10/06/24 19:40 Temperature 98.1 F 10/06/24 19:40 Pulse Rate 84 10/06/24 19:40 Respiratory Rate 18 10/06/24 19:40 Blood Pressure 121/68 10/06/24 22:04 Pulse Oximetry 100 10/06/24 19:40 Oxygen Delivery Method Room Air 10/06/24 19:40 <Nichole Johnson MD - Last Filed: 10/09/24 17:12> Initial Vital Signs Temperature 98.1 F 10/06/24 19:40 Temperature Source Temporal Artery Scan 10/06/24 19:40 Pulse Rate 84 10/06/24 19:40 Pulse Rhythm Regular 10/06/24 19:40 Respiratory Rate 18 10/06/24 19:40 Blood Pressure 117/77 10/06/24 19:40 Blood Pressure Mean 90 10/06/24 19:40 Blood Pressure Position Sitting 10/06/24 19:40 Pulse Oximetry 100 10/06/24 19:40 Oxygen Delivery Method Room Air 10/06/24 19:40 Vital Signs Temperature 98.1 F 10/06/24 19:40 Pulse Rate 84 10/06/24 19:40 Respiratory Rate 18 10/06/24 19:40 Blood Pressure 117/77 10/06/24 19:40 Pulse Oximetry 100 10/06/24 19:40 Oxygen Delivery Method Room Air 10/06/24 19:40 Temperature 98.1 F 10/06/24 19:40 Pulse Rate 84 10/06/24 19:40 Respiratory Rate 18 10/06/24 19:40 Blood Pressure 121/68 10/06/24 22:04 Pulse Oximetry 100 10/06/24 19:40 Oxygen Delivery Method Room Air 10/06/24 19:40 <Daisy Tam MD - Last Filed: 10/06/24 23:19> MDM - Abdominal Pain MDM Narrative Medical decision making narrative: 1. Bacterial vaginosis-will treat with Flagyl 500 mg p.o. b.i.d. x7 days. This is given via our [employer] machine. GC chlamydia pending will contact patient if these were positive. No evidence of PID tonight. 2. Constipation-increased stool burden noted on x-ray. Patient describes increasing difficulty with stooling over the past week. Ask her to do MiraLax twice a day until stools are soft and then gradually decreased. 3. Back and leg pain I think this is actually referred pain from the constipation but we are currently awaiting the x-ray results. 4. Disposition-home at this time. Seek medical attention for worsening symptoms especially fever chills. If patient does return with abdominal pain at that time a may suggest abdominal CT. This patient is signed out to my colleague Dr. Workman for review of the flat plate and upright and lumbar spine x-rays. <Nichole Johnson MD - Last Filed: 10/09/24 17:12> Medical Records Attestation: I reviewed the patient's medical records. <Nichole Johnson MD - Last Filed: 10/09/24 17:12> Lab Data Attestation: I reviewed the patient's lab results. <Nichole Johnson MD - Last Filed: 10/09/24 17:12> Labs: Lab Results 10/06/24 10/06/24 10/06/24 Range/Units 20:37 21:00 21:47 WBC 8.84 (4.50-11.00) K/uL RBC 4.18 (4.00-5.20) m/uL Hgb 13.2 (12.0-16.0) gm/dL Hct 39.2 (33.0-51.0) % MCV 94 (80-100) fL MCH 32 (26-34) pg MCHC 34 (32-36) gm/dL RDW Coeff of Sara 11.6 (11.5-15.5) % Plt Count 159 (140-440) K/uL Neut % (Auto) 72.1 H (42.0-72.0) % Lymph % (Auto) 18.2 L (20-44) % [place] % (Auto) 6.2 (0.0-11.0) % Eos % (Auto) 3.3 (0.0-7.0) % Baso % (Auto) 0.2 (0.0-3.0) % Neut # (Auto) 6.40 (1.7-7.0) K/uL Lymph # (Auto) 1.60 (0.90-2.90) K/uL [place] # (Auto) 0.50 (0.00-0.90) K/UL Eos # (Auto) 0.29 (0.00-0.50) K/uL Baso # (Auto) 0.02 (0.00-0.30) K/uL Abs Immat Gran (auto) 0.00 (0.00-0.30) K/uL Imm/Tot Granulo (auto) 0.0 % Sodium 139 (135-149) mmol/L Potassium 3.8 (3.6-5.1) mmol/L Chloride 104 (96-114) mmol/L Carbon Dioxide 26 (20-32) mmol/L Anion Gap 9 (7-15) mEq/L BUN 8 (5-24) mg/dL Creatinine 0.7 (0.5-1.5) mg/dL Estimated Creat Clear 108.63 Estimated GFR 121 ml/min Glucose 85 (60-115) mg/dL Calcium 10.1 (8.4-10.6) mg/dL Total Bilirubin 2.0 H (0.1-1.5) mg/dL AST 21 (12-35) U/L ALT 13 (4-35) U/L Alkaline Phosphatase 43 (40-150) U/L C-Reactive Protein < 0.5 L (0.5-1.0) mg/dL Total Protein 8.1 (6.0-8.3) g/dL Albumin 5.2 H (3.3-5.0) g/dL Urine Color Yellow (Yellow) Urine Appearance Clear (Clear) Urine pH 5.5 (5.0-8.5) Ur Specific [place] >= 1.030 (1.000-1.030) Urine Protein Negative (Negative) Urine Glucose (UA) Negative (Negative) Urine Ketones 1+ A (Negative) Urine Blood Negative (Negative) Urine Nitrite Negative (Negative) Urine Bilirubin 1+ A (Negative) Urine Urobilinogen 0.2 (0.2-1.0) Ur Leukocyte Esterase Negative (Negative) Urine RBC 2-5 A (0-2) Urine WBC 2-5 (0-5) Ur Squamous Epith Cells Few (None-Few) Urine Bacteria Few A (None) Urine HCG, Qual Negative (Negative) Vaginal Trichomonas (None Seen) Vaginal Yeast (None Seen) Vaginal Clue Cells (None Seen) C.trachomatis Ampl DNA (No Detected) N.gonorrhoeae Ampl DNA (No Detected) 10/06/24 Range/Units 22:00 WBC (4.50-11.00) K/uL RBC (4.00-5.20) m/uL Hgb (12.0-16.0) gm/dL Hct (33.0-51.0) % MCV (80-100) fL MCH (26-34) pg MCHC (32-36) gm/dL RDW Coeff of Sara (11.5-15.5) % Plt Count (140-440) K/uL Neut % (Auto) (42.0-72.0) % Lymph % (Auto) (20-44) % [place] % (Auto) (0.0-11.0) % Eos % (Auto) (0.0-7.0) % Baso % (Auto) (0.0-3.0) % Neut # (Auto) (1.7-7.0) K/uL Lymph # (Auto) (0.90-2.90) K/uL [place] # (Auto) (0.00-0.90) K/UL Eos # (Auto) (0.00-0.50) K/uL Baso # (Auto) (0.00-0.30) K/uL Abs Immat Gran (auto) (0.00-0.30) K/uL Imm/Tot Granulo (auto) % Sodium (135-149) mmol/L Potassium (3.6-5.1) mmol/L Chloride (96-114) mmol/L Carbon Dioxide (20-32) mmol/L Anion Gap (7-15) mEq/L BUN (5-24) mg/dL Creatinine (0.5-1.5) mg/dL Estimated Creat Clear Estimated GFR ml/min Glucose (60-115) mg/dL Calcium (8.4-10.6) mg/dL Total Bilirubin (0.1-1.5) mg/dL AST (12-35) U/L ALT (4-35) U/L Alkaline Phosphatase (40-150) U/L C-Reactive Protein (0.5-1.0) mg/dL Total Protein (6.0-8.3) g/dL Albumin (3.3-5.0) g/dL Urine Color (Yellow) Urine Appearance (Clear) Urine pH (5.0-8.5) Ur Specific [place] (1.000-1.030) Urine Protein (Negative) Urine Glucose (UA) (Negative) Urine Ketones (Negative) Urine Blood (Negative) Urine Nitrite (Negative) Urine Bilirubin (Negative) Urine Urobilinogen (0.2-1.0) Ur Leukocyte Esterase (Negative) Urine RBC (0-2) Urine WBC (0-5) Ur Squamous Epith Cells (None-Few) Urine Bacteria (None) Urine HCG, Qual (Negative) Vaginal Trichomonas No Trichomonas Seen (None Seen) Vaginal Yeast No Yeast Seen (None Seen) Vaginal Clue Cells <20% Clue Cells Seen A (None Seen) C.trachomatis Ampl DNA NOT DETECTED (No Detected) N.gonorrhoeae Ampl DNA NOT DETECTED (No Detected) <Nichole Johnson MD - Last Filed: 10/09/24 17:12> Lab Results 10/06/24 10/06/24 10/06/24 Range/Units 20:37 21:00 21:47 WBC 8.84 (4.50-11.00) K/uL RBC 4.18 (4.00-5.20) m/uL Hgb 13.2 (12.0-16.0) gm/dL Hct 39.2 (33.0-51.0) % MCV 94 (80-100) fL MCH 32 (26-34) pg MCHC 34 (32-36) gm/dL RDW Coeff of Sara 11.6 (11.5-15.5) % Plt Count 159 (140-440) K/uL Neut % (Auto) 72.1 H (42.0-72.0) % Lymph % (Auto) 18.2 L (20-44) % [place] % (Auto) 6.2 (0.0-11.0) % Eos % (Auto) 3.3 (0.0-7.0) % Baso % (Auto) 0.2 (0.0-3.0) % Neut # (Auto) 6.40 (1.7-7.0) K/uL Lymph # (Auto) 1.60 (0.90-2.90) K/uL [place] # (Auto) 0.50 (0.00-0.90) K/UL Eos # (Auto) 0.29 (0.00-0.50) K/uL Baso # (Auto) 0.02 (0.00-0.30) K/uL Abs Immat Gran (auto) 0.00 (0.00-0.30) K/uL Imm/Tot Granulo (auto) 0.0 % Sodium 139 (135-149) mmol/L Potassium 3.8 (3.6-5.1) mmol/L Chloride 104 (96-114) mmol/L Carbon Dioxide 26 (20-32) mmol/L Anion Gap 9 (7-15) mEq/L BUN 8 (5-24) mg/dL Creatinine 0.7 (0.5-1.5) mg/dL Estimated Creat Clear 108.63 Estimated GFR 121 ml/min Glucose 85 (60-115) mg/dL Calcium 10.1 (8.4-10.6) mg/dL Total Bilirubin 2.0 H (0.1-1.5) mg/dL AST 21 (12-35) U/L ALT 13 (4-35) U/L Alkaline Phosphatase 43 (40-150) U/L C-Reactive Protein < 0.5 L (0.5-1.0) mg/dL Total Protein 8.1 (6.0-8.3) g/dL Albumin 5.2 H (3.3-5.0) g/dL Urine Color Yellow (Yellow) Urine Appearance Clear (Clear) Urine pH 5.5 (5.0-8.5) Ur Specific [place] >= 1.030 (1.000-1.030) Urine Protein Negative (Negative) Urine Glucose (UA) Negative (Negative) Urine Ketones 1+ A (Negative) Urine Blood Negative (Negative) Urine Nitrite Negative (Negative) Urine Bilirubin 1+ A (Negative) Urine Urobilinogen 0.2 (0.2-1.0) Ur Leukocyte Esterase Negative (Negative) Urine RBC 2-5 A (0-2) Urine WBC 2-5 (0-5) Ur Squamous Epith Cells Few (None-Few) Urine Bacteria Few A (None) Urine HCG, Qual Negative (Negative) Vaginal Trichomonas (None Seen) Vaginal Yeast (None Seen) Vaginal Clue Cells (None Seen) C.trachomatis Ampl DNA (No Detected) N.gonorrhoeae Ampl DNA (No Detected) 10/06/24 Range/Units 22:00 WBC (4.50-11.00) K/uL RBC (4.00-5.20) m/uL Hgb (12.0-16.0) gm/dL Hct (33.0-51.0) % MCV (80-100) fL MCH (26-34) pg MCHC (32-36) gm/dL RDW Coeff of Sara (11.5-15.5) % Plt Count (140-440) K/uL Neut % (Auto) (42.0-72.0) % Lymph % (Auto) (20-44) % [place] % (Auto) (0.0-11.0) % Eos % (Auto) (0.0-7.0) % Baso % (Auto) (0.0-3.0) % Neut # (Auto) (1.7-7.0) K/uL Lymph # (Auto) (0.90-2.90) K/uL [place] # (Auto) (0.00-0.90) K/UL Eos # (Auto) (0.00-0.50) K/uL Baso # (Auto) (0.00-0.30) K/uL Abs Immat Gran (auto) (0.00-0.30) K/uL Imm/Tot Granulo (auto) % Sodium (135-149) mmol/L Potassium (3.6-5.1) mmol/L Chloride (96-114) mmol/L Carbon Dioxide (20-32) mmol/L Anion Gap (7-15) mEq/L BUN (5-24) mg/dL Creatinine (0.5-1.5) mg/dL Estimated Creat Clear Estimated GFR ml/min Glucose (60-115) mg/dL Calcium (8.4-10.6) mg/dL Total Bilirubin (0.1-1.5) mg/dL AST (12-35) U/L ALT (4-35) U/L Alkaline Phosphatase (40-150) U/L C-Reactive Protein (0.5-1.0) mg/dL Total Protein (6.0-8.3) g/dL Albumin (3.3-5.0) g/dL Urine Color (Yellow) Urine Appearance (Clear) Urine pH (5.0-8.5) Ur Specific [place] (1.000-1.030) Urine Protein (Negative) Urine Glucose (UA) (Negative) Urine Ketones (Negative) Urine Blood (Negative) Urine Nitrite (Negative) Urine Bilirubin (Negative) Urine Urobilinogen (0.2-1.0) Ur Leukocyte Esterase (Negative) Urine RBC (0-2) Urine WBC (0-5) Ur Squamous Epith Cells (None-Few) Urine Bacteria (None) Urine HCG, Qual (Negative) Vaginal Trichomonas No Trichomonas Seen (None Seen) Vaginal Yeast No Yeast Seen (None Seen) Vaginal Clue Cells <20% Clue Cells Seen A (None Seen) C.trachomatis Ampl DNA NOT DETECTED (No Detected) N.gonorrhoeae Ampl DNA NOT DETECTED (No Detected) <Daisy Tam MD - Last Filed: 10/06/24 23:19> Imaging Data US - abdomen: Attestation: I have reviewed the pertinent imaging results. <Nichole Johnson MD - Last Filed: 10/09/24 17:12> Radiologist's impression: Uterus: 7.9 x 3.9 x 4.7 cm. Normal echotexture of the myometrium. No masses. Endometrium: Transvaginal imaging was performed to better evaluate the endometrium. Endometrial thickness measures 7 mm. No sign of endometrial mass or fluid. Right ovary measures 11.5 mL. Left ovary measures 23.8 mL. No ovarian or adnexal masses. Normal arterial and venous blood flow is demonstrated in both ovaries. Cul-de-sac: No significant free fluid. IMPRESSION: No acute sonographic abnormalities in the pelvis. <Nichole Johnson MD - Last Filed: 10/09/24 17:12> Abdominal x-ray: Attestation: I have reviewed the pertinent imaging results. <Nichole Johnson MD - Last Filed: 10/09/24 17:12> My impression: By my read increased stool burden. No evidence of obstruction. <Nichole Johnson MD - Last Filed: 10/09/24 17:12> Radiologist's impression: Patient: NORIS VALENZUELA Facility:?[facility] Patient ID:?[id number] Site Patient ID:?[id number]. Site :?1995 Study:?XRay-Abdomen/Pelvis 2V-10/06/2024 10:31:13 PM Ordering Physician:?Johnson Nichole Final Report: Indication: Low back and left leg pain. Technique: Abdomen 2 view. Comparison: CT abdomen and pelvis 10/27/2021. Findings: Bowel: Nonobstructive bowel gas pattern. Normal colonic stool burden. Other: No sign of free air. No sign of soft tissue mass. The lung bases are clear. Osseous structures are unremarkable for age. Impression: No evidence of an acute intra-abdominal process. Dictated by Garcia Belcher MD @ 10/06/2024 11:16:58 PM (Electronic Signature) <Daisy Tam MD - Last Filed: 10/06/24 23:19> Lumbar spine x-ray: Attestation: I have reviewed the pertinent imaging results. <Nichole Johnson MD - Last Filed: 10/09/24 17:12> My impression: No evidence of bony abnormality. <Nichole Johnson MD - Last Filed: 10/09/24 17:12> Radiologist's impression: [facility]: [facility] Facility:?[facility] Patient ID:?[id number] Site Patient ID:?[id number]. Site :?[id number] Study:?XRay-Spine Lumbar 2V-10/06/2024 10:30:55 PM Ordering Physician:Laura Varela Final Report: INDICATION: Low back and left leg pain. TECHNIQUE: Lumbar spine 3 view. COMPARISON: None. FINDINGS: Bones: Alignment is normal. No fractures or significant bone lesions. Joints: Mild intervertebral disc height loss at L5-S1. The remaining intervertebral disc spaces are maintained. The facet joints are unremarkable. Soft tissues: Unremarkable. IMPRESSION: No acute bony abnormality of the lumbar spine. Mild degenerative disc changes at L5-S1. Dictated by Garcia Belcher MD @ 10/06/2024 11:15:10 PM (Electronic Signature) <Daisy Tam MD - Last Filed: 10/06/24 23:19> Discharge Plan Discharge Clinical Impression: Bacterial vaginosis Abdominal pain Qualifiers: Abdominal location: lower abdomen, unspecified Qualified Code(s): R10.30 - Lower abdominal pain, unspecified Back pain Qualifiers: Back pain location: back pain in unspecified location Chronicity: unspecified Back pain laterality: unspecified Qualified Code(s): M54.9 - Dorsalgia, unspecified <Nichole Johnson MD - Last Filed: 10/09/24 17:12> Patient Disposition: Home, Self-Care <Nichole Johnson MD - Last Filed: 10/09/24 17:12> Condition: Improved <Nichole Johnson MD - Last Filed: 10/09/24 17:12> Additional Instructions: Bacterial vaginosis: flagyl twice daily for 7 days. This is in our med vending machine. Do not use ANY alcohol until 48 hours after your last tablet of flagyl Constipation: Miralax twice daily until stools are loose then gradually taper back. You will be called with abnormal results of any further tests not yet back. Return to the ER for worsening symptoms. Ibuprofen or Tylenol may be used for discomfort. <Nichole Johnson MD - Last Filed: 10/09/24 17:12> Prescriptions: No Action norethindrone (contraceptive) 0.35 mg tablet Patient Comments: TAKE 1 TABLET BY MOUTH ONCE DAILY. sertraline 50 mg tablet Patient Comments: TAKE 1 TABLET BY MOUTH EVERY DAY omeprazole 20 mg capsule,delayed release(DR/EC) 20 mg PO DAILY Qty: 14 0RF <Nichole Johnson MD - Last Filed: 10/09/24 17:12> Follow Up/Referrals: Provider,Not a Local [Primary Care Provider, Family Practice] <Nichole Johnson MD - Last Filed: 10/09/24 17:12> Stand Alone Forms: MyHealth Info Instructions <Nichole Johnson MD - Last Filed: 10/09/24 17:12>
--- NOTE | 2024-10-06 20:21 | CRLHL7_ITS ---
For Patients: As a result of the Century Cures Act, medical imaging exams and procedure reports are released immediately into your electronic medical record. You may view this report before your referring provider. If you have questions, please contact your health care provider. INDICATION: Pelvic pain. TECHNIQUE: Ultrasound pelvis transabdominal and transvaginal for better assessment or to better visualize the endometrium. Real-time sonographic images with spectral and color Doppler imaging of the ovaries were obtained. COMPARISON: CT abdomen pelvis dated 10/27/2021. FINDINGS: Uterus: 7.9 x 3.9 x 4.7 cm. Normal echotexture of the myometrium. No masses. Endometrium: Transvaginal imaging was performed to better evaluate the endometrium. Endometrial thickness measures 7 mm. No sign of endometrial mass or fluid. Right ovary measures 11.5 mL. Left ovary measures 23.8 mL. No ovarian or adnexal masses. Normal arterial and venous blood flow is demonstrated in both ovaries. Cul-de-sac: No significant free fluid. IMPRESSION: No acute sonographic abnormalities in the pelvis. Dictated by Manuel Paula MD @ 10/06/2024 9:53:46 PM (Electronically Signed)
[2024-10-06 20:46] LABS: Hematocrit 39.2 % (33.0-51.0); Hemoglobin* 13.2 gm/dL (12.0-16.0); Immature Granulocytes Abs Auto 0.00 K/uL (0.00-0.30); Immature Granulocytes Pct Auto 0.0 %; Mean Corpuscular HGB Conc 34 gm/dL (32-36); Mean Corpuscular Hemoglobin 32 pg (26-34); Mean Corpuscular Volume 94 fL (80-100); RDW Coefficient of Variation % 11.6 % (11.5-15.5); Red Blood Count 4.18 m/uL (4.00-5.20); White Blood Count* 8.84 K/uL (4.50-11.00)
[2024-10-06 20:49] LABS: Lymphocytes Absolute Auto 1.60 K/uL (0.90-2.90); Slide Review Reflex No
[2024-10-06 21:01] LABS: Albumin* 5.2 g/dL (3.3-5.0); Chloride* 104 mmol/L (96-114)
[2024-10-06 21:02] LABS: Potassium* 3.8 mmol/L (3.6-5.1); Sodium* 139 mmol/L (135-149)
[2024-10-06 21:04] LABS: Blood Urea Nitrogen* 8 mg/dL (5-24); Creatinine* 0.7 mg/dL (0.5-1.5); Est. Creatinine Clearance* 108.63; Estimated Glomerular Filt Rate 121 ml/min
[2024-10-06 21:05] LABS: Alanine Aminotransferase* 13 U/L (4-35); Alkaline Phosphatase* 43 U/L (40-150); Anion Gap 9 mEq/L (7-15); Aspartate Amino Transferase* 21 U/L (12-35); Bilirubin Total* 2.0 mg/dL (0.1-1.5); Calcium* 10.1 mg/dL (8.4-10.6); Carbon Dioxide* 26 mmol/L (20-32); Glucose* 85 mg/dL (60-115); Total Protein* 8.1 g/dL (6.0-8.3)
[2024-10-06 21:37] LABS: Appearance Urine Clear (Clear)
[2024-10-06 22:01] LABS: Ur HCG Qualitative* Negative (Negative)
[2024-10-06 22:04] VITALS: BP 121/68
--- NOTE | 2024-10-06 22:09 | CRLHL7_ITS ---
For Patients: As a result of the Century Cures Act, medical imaging exams and procedure reports are released immediately into your electronic medical record. You may view this report before your referring provider. If you have questions, please contact your health care provider. INDICATION: Low back and left leg pain. TECHNIQUE: Lumbar spine 3 view. COMPARISON: None. FINDINGS: Bones: Alignment is normal. No fractures or significant bone lesions. Joints: Mild intervertebral disc height loss at L5-S1. The remaining intervertebral disc spaces are maintained. The facet joints are unremarkable. Soft tissues: Unremarkable. IMPRESSION: No acute bony abnormality of the lumbar spine. Mild degenerative disc changes at L5-S1. Dictated by Garcia Belcher MD @ 10/06/2024 11:15:10 PM (Electronically Signed)
--- NOTE | 2024-10-06 22:09 | CRLHL7_ITS ---
For Patients: As a result of the Century Cures Act, medical imaging exams and procedure reports are released immediately into your electronic medical record. You may view this report before your referring provider. If you have questions, please contact your health care provider. Indication: Low back and left leg pain. Technique: Abdomen 2 view. Comparison: CT abdomen and pelvis 10/27/2021. Findings: Bowel: Nonobstructive bowel gas pattern. Normal colonic stool burden. Other: No sign of free air. No sign of soft tissue mass. The lung bases are clear. Osseous structures are unremarkable for age. Impression: No evidence of an acute intra-abdominal process. Dictated by Garcia Belcher MD @ 10/06/2024 11:16:58 PM (Electronically Signed)
[2024-10-06 22:13] LABS: Trichomonas No Trichomonas Seen (None Seen)
[2024-10-06 23:37] LABS: Chlamydia DNA Amplified* NOT DETECTED (No Detected); GC DNA Amplified* NOT DETECTED (No Detected)
== END 2024-10-06 23:24 | disposition home or self-care (01) ==
PROVIDERS: Emergency Provider Family Medicine
DX: N76.0 Acute vaginitis (principal); M54.9 Dorsalgia, unspecified
CPT/HCPCS: 36415; 72100; 74019; 76830; 76856; 80053; 81001; 81025; 85025; 86140; 87086; 87210; 87491; 87591; 93976; 99284